=== PATIENT | female | born 1975 | race Caucasian/White ===

== ENCOUNTER → 2017-08-10 | Outpatient (CLI) | payer BC, OTHER ==
--- NOTE | ~2017-08-10 | O ---
[facility] [place] [address] OPERATIVE REPORT Name: MATTHEWSRIOS León Room #: REG [facility]#: [id number] Admission: 08/10/17 Attend Phys: Tom Castro MD, Discharge: Date of : 71 Report #: [id number] THIS REPORT FOR: //name// CC: Sergo Castro DATE OF SERVICE: 08/10/2017 PREOPERATIVE DIAGNOSES: 1. Generalized abdominal pain. 2. Gastroesophageal reflux disease. 3. Morbid obesity with a BMI of 44.8. 4. Snoring disorder. 5. Lumbago. 6. Nonintractable vomiting with nausea. 7. History of endometriosis and left ovarian cyst. POSTOPERATIVE DIAGNOSES: 1. Generalized abdominal pain. 2. Gastroesophageal reflux disease. 3. Morbid obesity with a BMI of 44.8. 4. Snoring disorder. 5. Lumbago. 6. Nonintractable vomiting with nausea. 7. History of endometriosis and left ovarian cyst. 8. Hyperplastic gastric polyps. 9. A 2-cm hiatal hernia. PROCEDURE PERFORMED: Thorough esophagogastroduodenoscopy (EGD). SURGEON: Tom Castro M.D. CHIEF NUCLEAR MEDICINE TECHNOLOGIST: None. ANESTHESIA: Monitored anesthesia care. ESTIMATED BLOOD LOSS: None. COMPLICATIONS: None. SPECIMENS: None. INDICATIONS: The patient is a 41-year-old morbidly obese female who presents with worsening abdominal pain, nausea and vomiting of undigested food that she had eaten several hours earlier. The patient reportedly underwent a CT scan of the abdomen and pelvis with findings of gallstones without [facility] [address] [place] [address] OPERATIVE REPORT Name: RIOS MATTHEWS León Room #: REG [facility].#: [id number] Admission: 08/10/17 Attend Phys: Tom Castro MD, Discharge: Date of : 71 Report #: [id number] cholecystitis; however, that was done at an outpatient facility and I am still awaiting the results of that. Nonetheless, in light of her history of longstanding reflux with vomiting of undigested food that she had ingested several hours earlier, indication was for EGD today. DESCRIPTION OF PROCEDURE: After explaining the risks, benefits and alternatives of the procedure with the patient in detail and obtaining consent, the patient was brought to the endoscopy suite supine on her hospital bed. After conducting a thorough timeout procedure verifying correct patient and procedure, the patient was given monitored anesthesia care. Once adequate anesthesia was obtained, she was positioned in the left lateral decubitus position and the Zen99n upper endoscope was used to intubate the oropharynx. This was traversed down the esophagus, which was slightly tortuous at the distal aspect where the Z line was identified and I was able to intubate into the gastric lumen. The pylorus was identified and intubated and the scope was advanced to the second portion of the duodenum. Slow and careful withdrawal of the EGD scope showed no evidence of duodenitis. However, there was mild gastritis seen. I saw no evidence of mass lesions or ulcerations. There were several hyperplastic polyps throughout the mid body of the gastric wall, consistent with chronic reflux changes and possibly gastroparesis. A retroflexion view of the scope within the gastric lumen showed an approximate 2-cm hiatal hernia. The scope was straightened out and withdrawn until the Z line was identified and that was at 37 cm from the incisors and saw no evidence of esophagitis and certainly no Beck's changes. The scope was intubated back into the gastric lumen where the stomach was fully desufflated and removed and passed off the field completing the procedure. At the end of the procedure, all instrument, needle and sponge counts were correct. The patient tolerated the procedure without incident, was awakened in the endoscopy room, transitioned back to the recovery room in stable condition with no apparent complications. She will next undergo an upper GI swallow as well as a gastric emptying study and possibly even esophageal manometry testing to complete her workup. <ELECTRONICALLY SIGNED> By: Tom Castro MD, FACS 08/10/17 [id number] Tom Castro MD, FACS /nt
== END | disposition home or self-care (01) ==
LOC: GI 06:47
DX: K31.7 Polyp of stomach and duodenum (principal); K44.9 Diaphragmatic hernia without obstruction or gangrene; K21.9 Gastro-esophageal reflux disease without esophagitis; E66.01 Morbid (severe) obesity due to excess calories; R06.83 Snoring; M54.5 Low back pain; Z87.42 Personal history of other diseases of the female genital tract; Z68.41 Body mass index [BMI] 40.0-44.9, adult
CPT/HCPCS: 62110; 62900

== ENCOUNTER → 2017-08-13 | Outpatient (CLI) | payer BC, OTHER | LOC: RAD 09:46 | DX: K44.9 Diaphragmatic hernia without obstruction or gangrene (principal); K80.80 Other cholelithiasis without obstruction ==

== ENCOUNTER → 2017-08-27 | Outpatient (CLI) | payer BC, OTHER | LOC: NUC 09:09 → RAD 10:34 → NUC 10:34 | DX: R11.2 Nausea with vomiting, unspecified (principal); R10.9 Unspecified abdominal pain ==